=== PATIENT | female | born 2000 | race African-American/Black ===

== ENCOUNTER 2020-07-07 10:10 | Emergency (ER) | payer OTHER ==
[~2020-07-07] VITALS: Ht 157.5 cm; Wt 64.9 kg
[2020-07-07 10:36] VITALS: BP 131/86
[2020-07-07] MEDS ORDERED: NAPROXEN 500 MG TABLET PO STA (10:43)
[2020-07-07 10:56] LABS: BILIRUBIN,URINE NEGATIVE (NEG); CLARITY,URINE CLEAR; COLOR,URINE YELLOW; NITRITE,URINE NEGATIVE (NEG); PROTEIN,URINE NEGATIVE (NEG-TRACE); UROBILINOGEN,URINE 0.2 mg/dL (0.2 mg/dL)
--- NOTE | 2020-07-07 11:01 | ED.ADGEN ---
Past Medical History Past Medical History: Hypertension Additional Past Medical Histor: POSSIBLE HTN Past Surgical History: Other Additional Past Surgical Histo: RT HAND SURG Smoking Status: Current Every Day Smoker Alcohol Use: Occasionally General Adult EDM: Chief Complaint: HAND PROBLEM HPI: HPI: Patient is a 20 year old AA female who presents emergency department with complaints of pain in her left third and fourth digits after she slammed a door shot at approximately 2:00 in the morning today. She denies shutting her hand in the door or any direct crushing injury to the hand. Patient reports increased pain with movement of the affected digits. She denies any decreased sensation, numbness, or tingling of the affected digits. She currently rates her pain 10 out of 10 on pain scale, she denies any alleviating factors. Review of Systems: Review of Systems: Complete ROS is negative unless otherwise noted in HPI. Current Medications: Current Medications Medications (Trade) Dose Ordered Sig/Paul Start Time Stop Time Status Last Admin Dose Admin Naproxen (Naprosyn) 500 mg 1X STAT 07/07/20 10:43 07/07/20 10:44 DC 07/07/20 11:01 500 MG Allergies: Allergies: Allergies Coded Allergies Type Severity Reaction Last Updated Verified No Known Drug Allergies 07/07/20 No Physical Exam: PE: See Above Constitutional: Well developed, well nourished, no acute distress, non-toxic appearance. [] HENT: Normocephalic, atraumatic, bilateral external ears normal, nose normal. [] Eyes: PERRLA, EOMI, conjunctiva normal, no discharge. [] Neck: Normal range of motion, no stridor. [] Cardiovascular:Heart rate regular rhythm Lungs & Thorax: Respirations even and unlabored, no retractions, no respiratory distress Abdomen: soft, no tenderness Skin: Warm, dry, no erythema, no rash. [] Extremities: Left hand: Pain at the proximal phalanx of the third and fourth digits, normal sensation, no crepitus, no bony tenderness, no cyanosis, ROM intact, no edema. [] Neurologic: Alert and oriented X 3, no focal deficits noted. [] Psychologic: Affect normal, judgement normal, mood normal. [] Current Patient Data: Labs: Laboratory Tests Test 07/07/20 10:40 07/07/20 10:48 Urine Collection Type Void Urine Color Yellow Urine Clarity Clear Urine pH 6.0 (<5.0-8.0) Urine Specific [place] >=1.030 (1.000-1.030) Urine Protein Negative mg/dL (NEG-TRACE) Urine Glucose (UA) Negative mg/dL (NEG) Urine Ketones (Stick) Negative mg/dL (NEG) Urine Blood Negative (NEG) Urine Nitrite Negative (NEG) Urine Bilirubin Negative (NEG) Urine Urobilinogen Dipstick 0.2 mg/dL (0.2 mg/dL) Urine Leukocyte Esterase Negative (NEG) Urine RBC 0 /HPF (0-2) Urine WBC 1-4 /HPF (0-4) Urine Squamous Epithelial Cells Many /LPF Urine Bacteria Few /HPF (0-FEW) Urine Mucus Mod /LPF POC Urine HCG, Qualitative Hcg negative (Negative) Vital Signs: Vital Signs Date Time Temp Pulse Resp B/P (MAP) Pulse Ox O2 Delivery O2 Flow Rate FiO2 07/07/20 10:36 97.6 92 14 131/86 (101) 100 Room Air 97.6 EKG: EKG: [] Heart Score: C/O Chest Pain: No Risk Scores: Score 0 - 3: 2.5% MACE over next 6 weeks - Discharge Home Score 4 - 6: 20.3% MACE over next 6 weeks - Admit for Clinical Observation Score 7 - 10: 72.7% MACE over next 6 weeks - Early Invasive Strategies Radiology/Procedures: Radiology/Procedures: PROCEDURE: HAND LEFT 3V 3 view study of the left hand Clinical indications: Left hand pain involving the third and fourth digits after shutting door heart on hand. FINDINGS: No acute fracture or dislocation or lytic process is seen. IMPRESSION: No acute fracture. Electronically signed by: Quique Bishop MD (07/07/2020 11:05 AM) [id number][] Course & Med Decision Making: Course & Med Decision Making Pertinent Labs and Imaging studies reviewed. (See chart for details) 20-year-old female presents emergency department with complaints of left hand pain after shutting a door earlier this morning. X-ray revealed no acute findings or fractures. After my evaluation the patient reported that she was having some pressure in her lower abdomen to nursing staff. I discussed this and x-ray results with patient. She denies any irregular vaginal discharge or vaginal odor. I told her that her urine was unremarkable I recommended that she follows up with her [employer], primary care doctor, or the local health department for STD testing if she has concerns for an STI. Faisal wrap was applied to the left hand for comfort. Recommended ice, elevation, and Tylenol. Prescription written for naproxen. Encouraged patient to follow-up with her primary care doctor for reevaluation in 1 to 2 days, return to the ER symptoms worsen or fever develops. Patient verbalized an understanding of home care, medications, follow-up, and return to ED instructions and was in agreement with the plan of care. [] Dragon Disclaimer: Dragon Disclaimer: This electronic medical record was generated, in whole or in part, using a voice recognition dictation system. Departure Departure Impression: Primary Impression: Pain in left finger(s) Disposition: 01 HOME / SELF CARE / HOMELESS Condition: STABLE Referrals: UNKNOWN PCP NAME (PCP) Patient Instructions: Finger Sprain, [id number] Additional Instructions: Fill prescription(s) and use as directed. You may also take Tylenol as needed for pain. Recommend application of ice, elevation, and rest of affected extremity. Wear the faisal wrap that was placed as needed for comfort. Follow up with your primary care doctor or local health department for STI testing. Return to the ER if your symptoms worsen or fever develops. Scripts Naproxen (NAPROSYN) 500 Mg Tablet 500 MG PO BID for 10 Days, #20 TAB 0 Refills Prov: PARTH MASSEY APRN 07/07/20 Splinting Splinting : Location: L hand Pre-Made Type: velcro (faisal wrap) Pre-Proc Neuro Vasc Exam: normal Post-Proc Neuro Vasc Exam: normal, unchanged from pre-exam PARTH MASSEY APRN July 07, 2020 11:01
--- NOTE | 2020-07-07 11:07 | RAD ---
3 view study of the left hand Clinical indications: Left hand pain involving the third and fourth digits after shutting door heart on hand. FINDINGS: No acute fracture or dislocation or lytic process is seen. IMPRESSION: No acute fracture. Electronically signed by: Quique Bishop MD (07/07/2020 11:05 AM) [id number]
[2020-07-07 11:08] LABS: BACTERIA,URINE FEW /HPF (0-FEW)
[2020-07-07 11:09] LABS: RBC,URINE 0 /HPF (0-2)
[2020-07-07] MEDS ORDERED: NAPR-683 PO (11:33)
== END 2020-07-07 11:53 | disposition home or self-care (01) ==
LOC: ER 10:10
DX: M79.645 Pain in left finger(s) (principal); I10 Essential (primary) hypertension; F17.200 Nicotine dependence, unspecified, uncomplicated
CPT/HCPCS: 73130; 81001; 81025; 99284